=== PATIENT | female | born 1950 | race Caucasian/White ===

== ENCOUNTER 2017-01-01 11:21 | Outpatient (CLI) | payer BC ==
[~2017-01-01] VITALS: Ht 157.5 cm; Wt 110.0 kg
--- NOTE | ~2017-01-01 | HEMODYNAMI ---
PATIENT:BINA MUNIZ MEDICAL RECORD: [id number] : 54 LOCATION:[facility] ADMISSION DATE: 01/01/17 Generatedon:01/01/201713:38 Patient name: BINA MUNIZ Patient #: [id number] SSN: : 1950 Date of study: 01/01/2017 Page: Of Hemodynamic Procedure Report Patient Data Patient Demographics Procedure consent was obtained First Name: BINA Gender: Female Last Name: CRISTY : 1950 [facility] Initial: JOAQUINA Age: 66 year(s) Patient #: [id number] Race: Unknown Additional ID: [id number] Contact details [address]: [address] [place] [address] State: [place] City: [place] Zip code: [address] Past Medical History Allergies Allergen Reaction Date Comments Reported Morphine 01/01/2017 Other allergy 01/01/2017 Benicar, Actos, Erythomycin Admission Admission Data Admission Date: 01/01/2017 Admission Time: 11:21 Lab Results Lab Result Date: 01/01/2017 Lab Result Time: 0:00 Biochemistry Name Units Result Min Max Creatinine mg/dl 1.3 --(---*)-- 0.6 1.3 CBC Name Units Result Min Max Hemoglobin g/dl 14.1 --(*---)-- 13.5 17.5 Procedure Procedure Types Cath Procedure Diagnostic Procedure C [facility] w/Coronaries Miscellaneous Procedures Moderate Sedation up to 30 minutes Procedure Description Procedure Date Procedure Date: 01/01/2017 Procedure Start Time: 13:19 Procedure End Time: 13:38 Procedure Staff Name Function Paco Velasquez MD Performing Physician Brad Ibrahim RT Scrub Red Nicolas RN Nurse Shaila Yee RT Monitor Procedure Data Cath Procedure Fluoroscopy Diagnostic fluoroscopy Total fluoroscopy Time: 6.5 time: 6.5 min min Diagnostic fluoroscopy Total fluoroscopy dose: 643 dose: 643 mGy mGy Contrast Material Contrast Material Type Amount (ml) Isovue 300 77 Entry Location Entry Primary Successful Side Size Upsize Upsize Entry Closure Curry ccessful Closure Location (Fr) 1 (Fr) 2 (Fr) Remarks Device Remarks Radial Right 6 Fr Mechanical artery Short Compression Estimated blood loss: 5 ml Diagnostic catheters Device Type Used For End Catheter Placement Medtronic Dexterity 5Fr LV Angiography BARRY 4.0 catheter (NO CHARGE) Medtronic Dexterity 5Fr Left Coronary BARRY 4.0 catheter (NO Angiography CHARGE) Terumo 5Fr Penfield 110cm Left Coronary catheter Angiography Procedure Complications No complications Procedure Medications Medication Administration Route Dosage Oxygen NC 2 l/min Heparin Flush Bag added to field 2 bags (1000units/500ml NS) 0.9% NaCl I.V. 100 ml/hr Radial Cocktail added to field 1 syringe (Verapomil 2mg/Nitro 400mcg/Heparin 1500units) Fentanyl I.V. 50 mcg Versed I.V. 1 mg Radial Cocktail I.A. 1 syringe (Verapomil 2mg/Nitro 400mcg/Heparin 1500units) Fentanyl I.V. 50 mcg Versed I.V. 1 mg Hemodynamics Rest HGB: 14.1 (g/dl) Heart Rate: 57 (bpm) Pressure Samples Time Site Value (mmHg) Purpose Heart Use Rate(bpm) 13:23 LV 182/-2,16 EDP 77 Snapshots Pre Cath Intra NCS Post Cath Vital Signs Time Heart Resp SPO2 etCO2 HQ2qxif NIBP (mmHg) Rhythm Pain Sedation Rate (ipm) (%) (mmHg) (mmHg) Status Level (bpm) 13:04:01 60 17 94 0 0 160/85(122) NSR 0 (11) 10(A) , No pain 13:08:27 57 20 94 0 0 151/81(120) NSR 0 (11) 10(A) , No pain 13:12:47 59 19 93 0 0 148/75(128) NSR 0 (11) 10(A) , No pain 13:17:11 59 19 94 0 0 148/69(122) NSR 0 (11) 10(A) , No pain 13:21:32 70 19 96 0 0 154/78(121) NSR 0 (11) 9(A) , No pain 13:25:50 64 20 93 0 0 137/70(113) NSR 0 (11) 9(A) , No pain 13:30:10 59 17 93 0 0 127/69(104) NSR 0 (11) 9(A) , No pain 13:35:09 65 19 96 0 0 Measuring NSR 0 (11) 9(A) , No pain 13:35:19 65 17 96 0 0 155/77(120) NSR 0 (11) 9(A) , No pain Medications Time Medication Route Dose Verified Delivered Reason Notes Effectiveness by by 13:04:22 Oxygen NC 2 l/min Red Moon Per Fidencio Nicolas RN physician RN 13:05:02 Heparin Flush added 2 bags Red Moon used for Bag to Fidencio Nicolas RN procedure (1000units/500ml field RN NS) 13:05:11 0.9% NaCl I.V. 100 Red Red Per ml/hr Fidencio Nicolas RN physician RN 13:05:52 Radial Cocktail added 1 Red Moon used for (Verapomil to syringe Fidencio Nicolas RN procedure 2mg/Nitro field RN 400mcg/Heparin 1500units) 13:18:29 Fentanyl I.V. 50 mcg Red Moon for sedation Fidencio Nicolas RN RN 13:18:34 Versed I.V. 1 mg Red Moon for sedation Fidencio Nicolas RN RN 13:20:03 Radial Cocktail I.A. 1 Red Ulrichory for (Verapomil syringe Fidencio [place] vasodilation 2mg/Nitro RN MD 400mcg/Heparin 1500units) 13:20:11 Fentanyl I.V. 50 mcg Red Moon for sedation Fidencio Nicolas RN RN 13:20:16 Versed I.V. 1 mg Red Moon for sedation Fidencio Nicolas RN tool room machinist Log Time Note 12:41:19 Red Nicolas RN sent for patient. Start room use. 12:51:20 Time tracking: Regular hours 12:51:24 Plan of Care:Hemodynamics will remain stable., Cardiac rhythm will remain stable., Comfort level will be maintained., Respiratory function will remain adequate., Patient/ family verbilizes understanding of procedure., Procedure tolerated without complication., Recovers from procedure without complications.. 12:51:40 Patient received from Pre/Post Procedure Room to [facility] 1 Alert and oriented. Tansferred to table in Supine position. 12:51:41 Warm blankets applied, and maira hugger turned on for patient comfort. 12:51:42 Correct patient and procedure confirmed by team. 12:51:43 Signed procedure consent form obtained from patient. 12:51:44 ECG and BP/O2 sat monitors applied to patient. 12:51:44 Full Disclosure recording started 13:02:49 Vital chart was started 13:02:52 Rhythm: sinus bradycardia 13:04:22 Oxygen 2 l/min NC was administered by Red Nicolas RN; Per physician; 13:04:55 H&P Date Dictated: 12/24/2016 Within 30 days and on chart., H&P Addendum completed by physician on day of procedure. (MUST COMPLETE FOR ALL OUTPATIENTS). 13:05:00 Pre-procedure instructions explained to patient. 13:05:01 Pre-op teaching completed and patient verbalized understanding. 13:05:02 Heparin Flush Bag (1000units/500ml NS) 2 bags added to field was administered by Red Nicolas RN; used for procedure; 13:05:02 Family in waiting room. 13:05:04 Patient NPO since Midnight. 13:05:11 0.9% NaCl 100 ml/hr I.V. was administered by Red Nicolas RN; Per physician; 13:05:12 Patient allergic to Morphine 13:05:34 Patient allergic to Other allergyBenicar, Actos, Erythomycin 13:05:52 Radial Cocktail (Verapomil 2mg/Nitro 400mcg/Heparin 1500units) 1 syringe added to field was administered by Red Nicolas RN; used for procedure; 13:06:13 Is the patient allergic to Iodine/contrast media? No. 13:06:16 Is patient on blood thinner?No 13:06:20 Patient diabetic? Yes. 13:06:21 If diabetic: On Metformin? Yes 13:06:24 If on Metformin: Last Dose? 12/31/2016 13:06:27 Previous problem with sedation/anesthesia? No ? 13:06:28 Snore? Yes 13:06:29 Sleep apnea? No 13:06:30 Deviated septum? No 13:06:31 Opens mouth fully? Yes 13:06:32 Sticks out tongue? Yes 13:06:33 Airway obstruction? No ? 13:06:35 Dentures? No ? 13:06:38 Pre procedure: right dorsailis pedis pulse 2+ Normal; easily identifiable; not easily obliterated 13:06:40 Modified Isaac's test Ulnar < 7 seconds 13:06:41 Patient pain scale 0/10 ?. 13:06:47 IV patent on arrival in left hand with 0.9% NaCl at [facility]. 13:07:12 Lab Result : Creatinine 1.3 mg/dl 13:07:12 Lab Result : Hemoglobin 14.1 g/dl 13:07:16 Lab results completed and on chart. 13:07:20 Right Radial & Right Groin area was prepped with chlora-prep and draped in sterile fashion 13:07:21 Alarms reviewed by R. N. 13:07:21 Sharps counted by scrub and verified by R.N. 13:07:26 Use device set Radial Dx 13:07:27 Acist Syringe opened to sterile field. 13:07:27 Medline Cath Pack opened to sterile field. 13:07:28 Bag Decanter opened to sterile field. 13:07:28 Terumo 6Fr Slender Glidesheath opened to sterile field. 13:07:29 St Adam 260cm J .035 wire opened to sterile field. 13:07:29 Acist Hand Control opened to sterile field. 13:07:30 Acist Manifold opened to sterile field. 13:07:30 Tegaderm 4 x 4 opened to sterile field. 13:07:31 MBrace Wrist Support opened to sterile field. 13:09:00 Physician paged 13:09:13 Baseline sample Acquired. 13:14:45 Final Timeout: patient, procedure, and site verified with staff and physician. All members of the team are in agreement. 13:14:49 Right Radial site verified by team. 13:14:55 Physical assessment completed. ASA score P 2 - A patient with mild systemic disease as per Paco Velasquez MD. 13:14:58 Sedation plan: IV Moderate Sedation Versed, Fentanyl 13:18:29 Fentanyl 50 mcg I.V. was administered by Red Nicolas RN; for sedation; 13:18:34 Versed 1 mg I.V. was administered by Red Nicolas RN; for sedation; 13:18:54 Procedure started. 13:19:00 Local anesthetic to right radial artery with Lidocaine 2% by Paco Velasquez MD.INITIAL ACCESS ONLY 13:19:14 A 6 Fr Short sheath was inserted into the Right Radial artery 13:20:03 Radial Cocktail (Verapomil 2mg/Nitro 400mcg/Heparin 1500units) 1 syringe I.A. was administered by Paco Velasquez MD; for vasodilation; 13:20:11 Fentanyl 50 mcg I.V. was administered by Red Nicolas RN; for sedation; 13:20:16 Versed 1 mg I.V. was administered by Red Nicolas RN; for sedation; 13:20:34 A Medtronic Dexterity 5Fr BARRY 4.0 catheter (NO CHARGE) was advanced over the wire and used for LV Angiography. 13:21:11 Terumo ANGLED SS 260CM glide wire opened to sterile field. 13:21:40 SS [place] wire advanced. 13:22:51 Wire removed. 13:23:20 LV gram done using KENNY 13:23:43 EF : 55 % 13:23:46 Injector settings: Ml/sec: 5, Volume: 15, 13:25:34 A Medtronic Dexterity 5Fr BARRY 4.0 catheter (NO CHARGE) was advanced over the wire and used for Left Coronary Angiography.removed. unable to cannulate. 13:26:27 A Terumo 5Fr Penfield 110cm catheter was advanced over the wire and used for Left Coronary Angiography.removed. unable to cannulate. 13:28:26 Medtronic Launcher 6Fr AR 1.0 guide catheter opened to sterile field. 13:28:51 6 Fr AR 1.0 guide catheter was inserted over the wire 13:29:19 RCA angiography performed. 13:30:00 Catheter removed. 13:30:28 Cordis 6FR XBLAD 3.5 guide catheter opened to sterile field. 13:30:52 6 Fr XBLAD 3.5 guide catheter was inserted over the wire 13:33:09 LCA angiography performed. 13:33:51 Catheter removed. 13:34:00 Sheath removed intact; hemostasis achieved with Mechanical Compression to the Right Radial artery. 13:34:02 Procedure ended.(Physican Out) :34:23 Fluoroscopy time 06.50 minutes. :34: Fluoroscopy dose: 643 mGy 13:34:27 Flurop Dose total: 643 13:34:32 Contrast amount:Isovue 300 77ml. 13:34:34 Sharps counted by scrub and verified by R.N. 13:34:36 TR band inflated with 12cc of air. 13:34:37 Insertion/operative site no bleeding no hematoma. 13:34:46 Post right radial artery:stable, clean and dry 13:34:47 Post Procedure Pulses reassessed and unchanged 13:34:52 Post-procedure physical assessment completed. ASA score P 2 - A patient with mild systemic disease as per Paco Velasquez MD. 13:34:54 Post procedure rhythm: unchanged. 13:34:59 Estimated blood loss: 5 ml 13:35:01 Post procedure instruction explained to patient.Patient verbalizes understanding. 13:35:01 Patient needs reinforcement of post procedure teaching. 13:35:10 Procedure type changed to Cath procedure, Diagnostic procedure, LHC, LHC w/Coronaries, Miscellaneous Procedures, Moderate Sedation up to 30 minutes 13:35:35 Procedure Complication : No complications 13:36:24 Terumo TR Band Standard opened to sterile field. 13:37:29 Procedure and supply charges have been captured, reviewed, submitted and are correct. 13:37:29 See physician's report for complete and final results. 13:37:53 Vital chart was stopped 13:37:55 Report given to Pre/Post Procedure Room. 13:37:58 Patient transfered to Pre/Post Procedure Room with Stretcher. 13:38:00 Procedure ended. 13:38:00 Full Disclosure recording stopped 13:38:07 End room use (Document Last) Device Usage Item Name Manufacture Quantity Catalog Hospital Part Current Minimal Lot# / Number Charge Number Stock Stock Serial# Code Acist Acist 1 [id number] [id number] [id number] 20 Syringe Medical Systems Inc Medline Cardinal 1 [id number] 082013 15527 971465 5 Cath Pack Health Bag Microtek 1 2001S 101437 09577 170739 5 Decanter Medical Inc. Terumo 6Fr Terumo 1 [id number] 689602 893533 457069 [address] [facility] St Adam 1 [id number] 191666 201939 882326 30 260cm J .035 wire Acist Hand Acist 1 36585 736938 099969 978591 5 Control Medical Systems Inc Acist Acist 1 29678 558360 088359 022101 5 Manifold Medical Systems [facility] Tegaderm 4 3M 1 [id number] 982887 033898 182335 5 x 4 MBrace Advanced 1 140-0250-00 279193 84389 516342 5 Wrist Vascular Support Dynamics Medtronic Medtronic 1 [id number] 420866 613837 5 Dexterity 5Fr BARRY 4.0 catheter (NO CHARGE) Terumo Terumo 1 [id number] 870657 764555 342891 5 ANGLED SS 260CM glide wire Terumo 5Fr Terumo 1 40-3303 571741 294803 045136 5 Penfield 110cm catheter Medtronic Medtronic 1 [id number] 229438 77702 565937 1 Launcher 6Fr AR 1.0 guide catheter Cordis 6FR Cardinal 1 [id number] 672138 612004 488761 10 XBLAD 3.5 Health guide catheter Terumo TR Terumo 1 [id number] 381092 795003 504174 40 Band Standard Signature Audit [place] Stage Time Signature Unsigned Intra-Procedure 01/01/2017 Shaila 1:38:22 PM Counts RT(R) Signatures Monitor : Shaila Signature : Counts RT Date : Time : [place] [id number] [facility] [place] [place] [address]
[~2017-01-01 11:21] MED LIST: ASPIRIN EC81 M1 PO; CALCIUM 500 +1 EAC3 PO; GLIMEPIRIDE2 MG PO; GLUCOPHAGE500 MG PO; LANTUS INSULIN10 ML SC; LASIX20 MG PO; METOPROLOL TART50 MG PO; NORVASC10 MG PO; PERCOCET 5-3251 TAB PO; PRINIVIL20 MG PO; PROTONIX40 MG PO; TRIAMTERENE-HCT1 TA1 PO; ULTRAM50 MG PO; VESICARE10 MG PO; ZOLOFT50 MG PO
[2017-01-01] MEDS ORDERED: VICTOZA0.6 MG/0.1 SQ (11:57)
[2017-01-01] MEDS ORDERED: APIDRA SOL100 UNIT/1 SQ (11:57)
[2017-01-01] MEDS ORDERED: LEVOTHYROXINE200 MCG PO (11:58)
[2017-01-01] MEDS ORDERED: NORVASC5 MG PO (11:58)
[2017-01-01] MEDS ORDERED: ZOVIRAX400 MG PO (11:59)
[2017-01-01] MEDS ORDERED: PREDNISONE10 MG PO (12:00)
[2017-01-01] MEDS ORDERED: EPIPEN0.3 MG/0.3 IM (12:00)
[2017-01-01] MEDS ORDERED: DEMADEX10 MG PO (12:00)
[2017-01-01 12:04] LABS: BASOPHILS 0 % (0-2); EOSINOPHILS 0 % (0-7); HEMATOCRIT 42.4 % (36.0-48.0); HEMOGLOBIN 14.1 g/dL (12-16); IMMATURE GRANULOCYTES 0.9 % (0-5); MCH 28.7 pg (26.0-34.0); MCHC 33.3 g/dL (31.0-37.0); MCV 86.4 fL (80.0-100.0); MEAN PLATELET VOLUME 9.4 fL (7.4-10.4); MONOCYTES 5.1 % (2-11); RBC 4.91 10x6/uL (4.00-5.40); RDW 13.8 % (11.5-14.5); WBC 11.2 10x3/uL (4.8-10.8)
[2017-01-01 12:05] LABS: PLATELET COUNT 253 10x3/uL (130-400)
[2017-01-01 12:08] VITALS: BP 175/78; Ht 157.5 cm; Wt 110.0 kg
[2017-01-01 12:13] LABS: ANION GAP 12.7 mmol/L (8-16); CALCIUM 9.4 mg/dL (8.5-10.1); CARBON DIOXIDE 27.5 mmol/L (21.0-32.0); CREATININE - SERUM 1.3 mg/dL (0.6-1.3); POTASSIUM - SERUM 4.2 mmol/L (3.5-5.1)
--- NOTE | 2017-01-01 15:35 | NUR ---
1400 RESTING IN BED WITH EYES CLOSED. ALL VITALS WNL.R WRIST TR BAND C/D/I WITH NO HEMATOMA OR BLEEDING. FAMILY AT SIDE.
--- NOTE | 2017-01-01 15:41 | NUR ---
1430 EATING TURKEY SANDWICH AND SIPPING DIET COKE WITH NO C/O NAUSEA. VITALS ALL WNL. R WRIST TR BAND C/D/I. 1515 3CC AIR REMOVED FROM R WRIST TR BAND, WILL MONITOR CLOSELY. UP FROM BED, AMBULATED TO BATHROOM TO VOID. BACK TO BED. PIV REMOVED FROM L FOREARM WITH BANDAID APPLIED. 1535 UP TO BEDSIDE TO DRESS, ANOTHER 2CC AIR REMOVED FROM R WRIST TR BAND. NO BLEEDING OR HEMATOMA NOTED.
--- NOTE | 2017-01-01 15:59 | NUR ---
TR BAND REMOVED FROM R WRIST. TEGADERM AND COTTON BALL IN PLACE. NO BLEEDING OR HEMATOMA NOTED. BRACE REPLACED. D/C INSTRUCTIONS DISCUSSED WITH PATIENT AND AT BEDSIDE. WHEELED OUT VIA WHEELCHAIR.
--- NOTE | 2017-01-03 08:26 | OP ---
PATIENT NAME: BINA MUNIZ MEDICAL RECORD: [id number] :54 LOCATION:D.CAT ADMISSION DATE: SURGEON: ION GARDINER MD DATE OF OPERATION: PROCEDURE: Left heart catheterization, selective coronary angiography, right radial approach. CATHETERS: A 5-Lao sheath, due to tortuosity, we switched to guiding catheters, we used an EBU in the left, AR1 on the right. The procedure was well tolerated. The patient returned to the yu, sheath removed and TR band was placed. FINDINGS: Left ventriculography in the 30-degree KENNY view: Normal wall motion and normal systolic function. CORONARY ANATOMY: LEFT MAIN: Left main is free of disease. LAD: LAD is free of disease. Previously placed stent is widely patent. CIRCUMFLEX: Circumflex is free of disease in the marginal system. RIGHT CORONARY ARTERY: Dominant artery, gives rise to PDA, free of disease. IMPRESSION: Normal systolic function. Normal coronary anatomy. No S3 stenosis. No progression of [place] disease. TRANSINT:[id number] Voice Confirmation ID: [id number] DOCUMENT ID: [id number] ION GARDINER MD at 0826 CC: [id number] DICTATION DATE: 01/01/17 1344 AIR CONDITIONING ENGINEER: 01/01/17 2142 DEP CLI 01/01/17 [place] [address] [place] [address]
== END 2017-01-01 16:00 | disposition home or self-care (01) ==
LOC: D.CATH 11:21
PROVIDERS: Internal Medicine Interventional Cardiology
DX: I25.119 Atherosclerotic heart disease of native coronary artery with unspecified angina pectoris (principal); I10 Essential (primary) hypertension; E11.9 Type 2 diabetes mellitus without complications; Z01.812 Encounter for preprocedural laboratory examination

== ENCOUNTER → 2018-09-21 14:35 | Outpatient (CLI) | payer MEDICARE, OTHER ==
[2017-01-01 12:08] VITALS: BMI 44.4
[~2018-09-21 14:35] MED LIST changes: +APIDRA SOL100 UNIT/1 SQ; +DEMADEX10 MG PO; +EPIPEN0.3 MG/0.3 IM; +LEVOTHYROXINE200 MCG PO; +NORVASC5 MG PO; +PREDNISONE10 MG PO; +VICTOZA0.6 MG/0.1 SQ; +ZOVIRAX400 MG PO
== END | disposition home or self-care (01) ==
LOC: D.RAD 14:35
DX: M25.511 Pain in right shoulder (principal)

== ENCOUNTER → 2019-09-15 08:02 | Outpatient (CLI) | payer MEDICARE, OTHER ==
[2017-01-01 12:08] VITALS: BMI 44.4
== END | disposition home or self-care (01) ==
LOC: D.US 08:02
PROVIDERS: ATTEND Internal Medicine
DX: E03.9 Hypothyroidism, unspecified (principal)

== ENCOUNTER → 2019-12-07 09:35 | Outpatient (CLI) | payer MEDICARE, OTHER ==
[2017-01-01 12:08] VITALS: BMI 44.4
== END | disposition home or self-care (01) ==
LOC: D.HCCARDIO 09:35
PROVIDERS: ATTEND Internal Medicine Cardiovascular Disease
DX: I25.10 Atherosclerotic heart disease of native coronary artery without angina pectoris (principal)

== ENCOUNTER 2019-12-14 06:03 | Outpatient (CLI) | payer MEDICARE, OTHER ==
[~2019-12-14] VITALS: Ht 157.5 cm; Wt 109.1 kg
--- NOTE | ~2019-12-14 | HEMODYNAMI ---
PATIENT:BINA MUNIZ MEDICAL RECORD: [id number] : 54 LOCATION:[facility] ADMISSION DATE: 12/14/19 Generatedon:12/14/20198:40 Patient name: BINA MUNIZ Patient #: [id number] SSN: [id number] : 1950 Date of study: 12/14/2019 Page: Of Hemodynamic Procedure Report Patient Data Patient Demographics Procedure consent was obtained First Name: BINA Gender: Female Last Name: CRISTY : 1950 Middle Initial: JOAQUINA Age: 68 year(s) Patient #: [id number] Race: SSN: [id number] Additional ID: [id number] Contact details Address: [address] [address] State: [place] City: [place] Zip code: [address] Past Medical History Performed procedures and imaging results Date Procedure Procedure Results Comments 12/07/2019 Stress testing Positive->Intermediate with SPECT MPI risk Allergies Allergen Reaction Date Comments Reported Morphine 01/01/2017 Other allergy 01/01/2017 Benicar, Actos, Erythomycin Other allergy 12/14/2019 ACTOS, ERYHTROMYCIN BASE, MORPHINE, STATINS Admission Admission Data Admission Date: 12/14/2019 Admission Time: 6:03 Arrival Date: 12/14/2019 Arrival Time: 0:00 Admit Source: Other Insurance Payor: Medicare [facility] #: [id number] Height (in.): 62 BSA: 2.07 (m2) Height (cm.): 157.48 BMI: 43.99 (kg/m2) Weight (lbs.): 240.5 Weight (kg.): 109.09 Lab Results Lab Result Date: 12/14/2019 Lab Result Time: 0:00 Biochemistry Name Units Result Min Max BUN mg/dl 24 --(----)-* 7 18 Creatinine mg/dl 1.1 --(--*-)-- 0.6 1.3 eGFR ml/min 53 *-(----)-- 90 120 NONAFRICAN CBC Name Units Result Min Max Hematocrit % 40.6 -*(----)-- 42 54 Hemoglobin g/dl 12.9 -*(----)-- 13.5 17.5 Procedure Procedure Types Cath Procedure Diagnostic Procedure [facility] w/Coronaries Sedation Charges Moderate Sedation up to 15 minutes Procedure Description Procedure Date Procedure Date: 12/14/2019 Procedure Start Time: 8:17 Procedure End Time: 8:38 Procedure Staff Name Function Yonatan Deleon MD Performing Physician Paris Winchester RN Nurse Cayla Gordon RT Monitor Gypsy Gomez RT Scrub Procedure Data Cath Procedure Fluoroscopy Diagnostic fluoroscopy Total fluoroscopy Time: 0 time: 0 min min Diagnostic fluoroscopy Total fluoroscopy dose: 488 dose: 488 mGy mGy Contrast Material Contrast Material Type Amount (ml) Isovue 300 60 Entry Location Entry Primary Successful Side Size Upsize Upsize Entry Closure Succes sful Closure Location (Fr) 1 (Fr) 2 (Fr) Remarks Device Remarks Femoral Right 5 Fr Exoseal artery Estimated blood loss: 5 ml Diagnostic catheters Device Type Used For End Catheter Placement MULTIPACK JL 4.0 5Fr Procedure catheter MULTIPACK 3DRC 5Fr Procedure catheter MULTIPACK Pigtail 5 Fr Procedure catheter Procedure Complications No complications Procedure Medications Medication Administration Route Dosage Oxygen etCO2 Nasal cannula 2 l/min Lidocaine 2% added to field 20 Heparin Flush Bag added to field 2 bags (1000units/500ml NS) 0.9% NaCl I.V. 100 ml/hr Versed I.V. 1 mg Fentanyl I.V. 50 mcg Versed I.V. 1 mg Fentanyl I.V. 50 mcg Versed I.V. 1 mg Fentanyl I.V. 50 mcg Hemodynamics Rest BSA: 2.07 (m2) HGB: 12.9 (g/dl) O2 Consumption: Estimated: 186.48 (ml/min) O2 Co nsumption indexed: Estimated:90.09 (ml/min/m) Heart Rate: 63 (bpm) Pressure Samples Time Site Value (mmHg) Purpose Heart Use Rate(bpm) 8:33 LV 144/16,34 Snapshot 68 8:34 AO 133/60(90) Pullback 68 8:34 LV 131/15,27 Pullback 68 Gradients Valve Time Site 1 Site 2 Mean SEP/DFP Peak To Heart Use (mmHg) (sec/min) Peak Rate (mmHg) (bpm) Aortic 8:34 LV AO 0 13 0 68 131/15,27 133/60(90) Calculations Valve P-P Mean Valve Index Valve Source Name Gradient Area Flow (cm2) Aortic 0 0 0 0 Snapshots Pre Cath Intra NCS Post Cath Vital Signs Time Heart Resp SPO2 etCO2 NIBP (mmHg) Rhythm Pain Sedation Rate (ipm) (%) (mmHg) Status Level (bpm) 7:58:28 61 16 99 0 178/83(127) NSR 0 (11) 10(A) , No pain 8:03:00 61 19 100 38.9 161/88(131) NSR 0 (11) 10(A) , No pain 8:07:33 64 16 98 44.2 154/74(123) NSR 0 (11) 10(A) , No pain 8:13:00 65 19 95 21.7 155/80(99) NSR 0 (11) 10(A) , No pain 8:18:30 64 19 98 47.1 166/83(123) NSR 0 (11) 9(A) , No pain 8:23:03 62 24 98 44.2 153/71(120) NSR 0 (11) 9(A) , No pain 8:28:30 64 16 94 50.2 146/70(104) NSR 0 (11) 9(A) , No pain 8:33:52 69 15 95 43.4 130/71(110) NSR 0 (11) 9(A) , No pain 8:38:18 69 16 94 56.2 141/68(110) NSR 0 (11) 10(A) , No pain Medications Time Medication Route Dose Verified Delivered Reason Notes Effe ctiveness by by 7:57:07 Oxygen etCO2 2 Yonatan Buffie used for Nasal l/min Pancho Winchester RN procedure cannula 7:57:13 Lidocaine 2% added 20ml Yonatan Yonatan for local to vial Pancho Deleon MD anesthetic field 7:57:20 Heparin Flush added 2 Yonatan Yonatan used for Bag to bags Pancho Deleon MD procedure (1000units/500ml field NS) 7:57:28 0.9% NaCl I.V. 100 Yonatan Buffie Per ml/hr Pancho Winchester RN physician 8:13:25 Versed I.V. 1 mg Yonatan Buffie for Pancho Winchester RN sedation 8:13:30 Fentanyl I.V. 50 Yonatan Buffie for mcg Pancho Winchester RN sedation 8:18:30 Versed I.V. 1 mg Yonatan Buffie for Pancho Winchester RN sedation 8:18:34 Fentanyl I.V. 50 Yonatan Buffie for mcg Pancho Winchester RN sedation 8:26:43 Versed I.V. 1 mg Yonatan Buffie for Pancho Winchester RN sedation 8:26:47 Fentanyl I.V. 50 Yonatan Buffie for mcg Pancho Winchester RN sedation Procedure Log Time Note 7:37:07 Informed consent obtained and on chart 7:37:21 Diagnostic Cath Status : Elective 7:37:42 Admit Source: Other 7:37:47 ACC Patient presents with Stable Angina CCS Anginal Class 2--Slight limitation of ordinary activity. 7:38:01 Procedure Status Elective Heart Cath (OP). 7:38:07 Time tracking: Regular hours (M-F 7:00 - 5:00) 7:38:12 Plan of Care:Hemodynamics will remain stable., Cardiac rhythm will remain stable., Comfort level will be maintained., Respiratory function will remain adequate., Patient/ family verbilizes understanding of procedure., Procedure tolerated without complication., Recovers from procedure without complications.. 7:38:23 H&P Date Dictated: 12/01/2019 Within 30 days and on chart.. 7:38:24 Pre-procedure instructions explained to patient. 7:38:25 Pre-op teaching completed and patient verbalized understanding. 7:38:26 Family unavailable. 7:38:28 Patient NPO since Midnight. 7:39:00 Patient allergic to Other allergyACTOS, ERYHTROMYCIN BASE, MORPHINE, STATINS 7:39:09 Lab results completed and on chart. 7:39:28 Stress Test: yes; abnormal ANTERIOR, LATERAL 7:39:31 Alarms reviewed by R. N. 7:39:31 Sharps counted by scrub and verified by R.N. 7:40:15 Arrival Date: 12/14/2019 12:00:00 AM 7:40:34 Insurance Payor : Medicare 7:42:06 Patient Height : 62 inches 7:42:10 Patient Weight : 240.5 lbs 7:46:00 Paris Winchester RN sent for patient. Start room use. 7:48:41 Lab Result : Hemoglobin 12.9 g/dl 7:48:41 Lab Result : Hematocrit 40.6 % 7:51:04 Patient received from Pre/Post Procedure Room to CCL 1 Alert and oriented. Tansferred to table in Supine position. 7:51:06 Warm blankets applied, and maira hugger turned on for patient comfort. 7:51:06 Correct patient and procedure confirmed by team. 7:51:07 ECG and BP/O2 sat monitors applied to patient. 7:51:11 Is the patient allergic to Iodine/contrast media? No. 7:51:13 Was the patient premedicated? N/A 7:51:15 Is patient on blood thinner?No 7:51:21 Patient diabetic? Yes. 7:51:23 If diabetic: On Metformin? Yes 7:51:31 Sleep apnea? Yes 7:51:41 If on Metformin: Last Dose? 12/12/2019 7:51:44 Patient not . Patient is over age 55. 7:51:45 ----Pre-sedation anethsthesia assessment.---- 7:51:49 Previous problem with sedation/anesthesia? No ? 7:51:50 Snore? Yes 7:51:51 Deviated septum? No 7:51:52 Opens mouth fully? Yes 7:51:53 Sticks out tongue? Yes 7:52:00 Airway obstruction? Yes asthma 7:52:04 Dentures? No ? 7:52:12 Patient pain scale 0/10 ?. 7:56:55 Vital chart was started 7:57:07 Oxygen 2 l/min etCO2 Nasal cannula was administered by Paris Winchester RN; used for procedure; Verbal order read back and verified. 7:57:13 Lidocaine 2% 20ml vial added to field was administered by Yonatan Deleon MD; for local anesthetic; Verbal order read back and verified. 7:57:20 Heparin Flush Bag (1000units/500ml NS) 2 bags added to field was administered by Yonatan Deleon MD; used for procedure; Verbal order read back and verified. 7:57:28 0.9% NaCl 100 ml/hr I.V. was administered by Paris Winchester RN; Per physician; Verbal order read back and verified. 8:00:13 Lab Result : eGFR NONAFRICAN 53 ml/min 8:00:13 Lab Result : Creatinine 1.1 mg/dl 8:00:13 Lab Result : BUN 24 mg/dl 8:00:36 Pre procedure: right dorsailis pedis pulse 2+ Normal; easily identifiable; not easily obliterated 8:00:44 IV patent on arrival in left antecubital with 0.9% NaCl at KVO. 8:00:50 Right groin area was prepped with chlora-prep and draped in sterile fashion 8:00:55 --------ALL STOP TIME OUT------ 8:00:55 Final Timeout: patient, procedure, and site verified with staff and physician. All members of the team are in agreement. 8:00:58 Right groin site verified by team. 8:01:04 Fire Safety Assessment: A--An alcohol-based skin anteseptic being used preoperatively., C--Open oxygen or nitrous oxide is being used., D--An ESU, laser, or fiber-optic light is being used. 8:01:08 Physical assessment completed. ASA score P 2 - A patient with mild systemic disease as per Yonatan Deleon MD. 8:01:11 3a) 45-59 Moderately reduced kidney function. 8:01:14 Maximum allowable contrast dose (3.7 X eGFR X 0.75)147 ml. 8:01:18 Sedation plan: IV Moderate Sedation Medication:Versed, Fentanyl 8:01:24 Full Disclosure recording started 8:01:25 Baseline sample Acquired. 8:01:30 Rhythm: sinus rhythm 8:01:33 Use device set Femoral Dx 8:01:34 ACIST Syringe (86834) opened to sterile field. 8:01:35 Bag Decanter (2002S) opened to sterile field. 8:01:36 Medline Cath Pack ([id number]) opened to sterile field. 8:01:37 ACIST Hand Control (90395) opened to sterile field. 8:01:38 ACIST Manifold (58914) opened to sterile field. 8:01:38 DIAGNOSTIC Multipack 5Fr catheter set ([id number]) opened to sterile field. 8:01:39 SHEATH 5FR [place] (RIS721) opened to sterile field. 8:01:40 EMERALD Guide Wire (004-742) opened to sterile field. 8:13:25 Versed 1 mg I.V. was administered by Paris Winchester RN; for sedation; Verbal order read back and verified. 8:13:30 Fentanyl 50 mcg I.V. was administered by Paris Winchester RN; for sedation; Verbal order read back and verified. 8:16:53 Procedure started. 8:17:01 Local anesthetic to right femoral artery with Lidocaine 2% by Yonatan Deleon MD.INITIAL ACCESS ONLY 8:18:30 Versed 1 mg I.V. was administered by Paris Winchester RN; for sedation; Verbal order read back and verified. 8:18:34 Fentanyl 50 mcg I.V. was administered by Paris Winchester RN; for sedation; Verbal order read back and verified. 8:26:43 Versed 1 mg I.V. was administered by Paris Winchester RN; for sedation; Verbal order read back and verified. 8:26:47 Fentanyl 50 mcg I.V. was administered by Paris Winchester RN; for sedation; Verbal order read back and verified. 8:27:15 A 5 Fr sheath was inserted into the Right Femoral artery 8:27:28 A MULTIPACK JL 4.0 5Fr catheter was advanced over the wire and used for Procedure. 8:28:00 LCA angiography performed. 8:28:03 Injector settings: Ml/sec: 3, Volume: 6, 8:29:40 Catheter exchanged over wire. 8:30:35 A MULTIPACK 3DRC 5Fr catheter was advanced over the wire and used for Procedure. 8:30:39 RCA angiography performed. 8:30:42 Injector settings: Ml/sec: 3, Volume: 6, 8:31:58 ACCDominant side:Right 8:32:14 Catheter exchanged over wire. 8:33:14 A MULTIPACK Pigtail 5 Fr catheter was advanced over the wire and used for Procedure. 8:33:47 LV gram done using KENNY 8:33:48 LV hemodynamics recorded. 8:33:52 Injector settings: Ml/sec: 5, Volume: 15, 8:33:58 EF : 60 % 8:34:24 Catheter removed. 8:34:28 EXOSEAL 5Fr (EX500) opened to sterile field. 8:35:44 Sheath removed intact; hemostasis achieved with Exoseal to the Right Femoral artery. 8:35:50 Contrast amount:Isovue 300 60ml. 8:35:54 Maximum allowable dose exceeded? No. 8:35:55 Sharps counted by scrub and verified by R.N. 8:35:59 Fluoroscopy time 00.00 minutes. 8:36:06 Flurop Dose total: 488 8:36:06 Fluoroscopy dose: 488 mGy 8:36:12 Dose Area Product 76337 mGy/cm. 8:36:23 Procedure ended.(Physican Out) 8:37:01 Post-op/insertion site Right Femoral artery dressed using a 4 x 4 and Tegaderm. 8:37:07 Post right femoral artery:stable, soft, clean and dry 8:37:09 Post Procedure Pulses reassessed and unchanged 8:37:11 Post procedure: right dorsailis pedis pulse 2+ Normal; easily identifiable; not easily obliterated. 8:37:14 Post-procedure physical assessment completed. ASA score P 2 - A patient with mild systemic disease as per Yonatan Deleon MD. 8:37:17 Post procedure rhythm: unchanged. 8:37:36 Estimated blood loss: 5 ml 8:37:37 Post procedure instruction explained to patient.Patient verbalizes understanding. 8:37:38 Patient needs reinforcement of post procedure teaching. 8:37:44 Procedure type changed to Cath procedure, Diagnostic procedure, LHC, [facility] w/Coronaries, Sedation Charges, Moderate Sedation up to 15 minutes 8:37:59 Procedure and supply charges have been captured, reviewed, submitted and are correct. 8:38:04 Procedure Complication : No complications 8:38:07 Vital chart was stopped 8:38:08 [facility] Findings: mild to moderate CAD (<70%) 8:38:12 Operative report dictated upon procedure completion. 8:38:13 See physician's report for complete and final results. 8:38:14 Report given to Pre/Post Procedure Room. 8:38:17 Patient transfered to Pre/Post Procedure Room with Stretcher. 8:38:20 Procedure ended. 8:38:20 Full Disclosure recording stopped 8:39:55 End room use (Document Last) 8:40:10 End room use (Document Last) 8:40:30 End room use (Document Last) Device Usage Item Name Manufacture Quantity Catalog Hospital Part Current Minimal L ot# / Number Charge Number Stock Stock Serial# Code ACIST Acist 1 99237 027469 893712 140092 20 Syringe Medical (19195) Systems Inc Bag Microtek 1 649929 28729 184035 5 Decanter Medical Inc. () Medline Medline 1 [id number] 891842 95853 417418 5 Cath Pack ([id number]) ACIST Hand Acist 1 91056 654556 040109 326669 5 Control Medical (17106) Systems Inc ACIST Acist 1 79768 078698 792447 910687 5 Manifold Medical (72711) Systems Inc DIAGNOSTIC Cardinal 1 BE4937 833271 49560 453635 30 Multipack UnboundID 5Fr catheter set (DZ8549) SHEATH 5FR Terumo 1 [id number] 775698 854237 699522 5 [place] (CNN688) EMERALD Cardinal 1 502-455 495791 656123 752652 5 Guide Wire [facility] (502-323) MULTIPACK Cardinal 1 475012 5 JL 4.0 5Fr Health catheter MULTIPACK Cardinal 1 701160 5 3DRC 5Fr Health catheter MULTIPACK Cardinal 1 053568 5 Pigtail 5 Health Fr catheter EXOSEAL 5Fr Cardinal 1 EX500 817063 484052 723009 10 (EX500) Health Signature Audit [place] Stage Time Signature Unsigned Intra-Procedure 12/14/2019 Cayla Gordon 8:40:10 AM RT(R) Intra-Procedure 12/14/2019 Paris Winchester RN 8:40:30 AM Intra-Procedure 12/14/2019 Yonatan Deleon MD 8:40:50 AM [id number] [place] [address]
[2019-12-14] MEDS ORDERED: BASAGLAR K100 UNIT/1 SC (06:20)
[2019-12-14] MEDS ORDERED: GLUCOPHAGE1000 MG PO (06:21)
[2019-12-14] MEDS ORDERED: NEURONTIN 300300 MG PO (06:22)
[2019-12-14] MEDS ORDERED: PROTONIX40 MG PO (06:22)
[2019-12-14] MEDS ORDERED: ZOLOFT50 MG PO (06:22)
[2019-12-14] MEDS ORDERED: ZYRTEC10 MG PO (06:22)
[2019-12-14] MEDS ORDERED: TROSPIUM CHLORI20 MG PO (06:23)
[2019-12-14] MEDS ORDERED: SYNTHROID150 MCG PO (06:23)
[2019-12-14] MEDS ORDERED: BAYER CHEWABLE81 MG PO (06:23)
[2019-12-14] MEDS ORDERED: ACETAMINOPHEN325 MG PO (06:24)
[2019-12-14 06:48] LABS: BASOPHILS 0.4 % (0-2); EOSINOPHILS 2.7 % (0-7); HEMATOCRIT 40.6 % (36.0-48.0); HEMOGLOBIN 12.9 g/dL (12-16); IMMATURE GRANULOCYTES 0.5 % (0-5); LYMPHOCYTES 28.4 % (15-50); MCH 26.7 pg (26.0-34.0); MCHC 31.8 g/dL (31.0-37.0); MCV 83.9 fL (80.0-100.0); MEAN PLATELET VOLUME 9.3 fL (7.4-10.4); MONOCYTES 10.4 % (2-11); NEUTROPHILS 57.6 % (40-80); PLATELET COUNT 193 10x3/uL (130-400); RBC 4.84 10x6/uL (4.00-5.40); RDW 14.7 % (11.5-14.5); WBC 7.4 10x3/uL (4.8-10.8)
[2019-12-14 06:53] VITALS: BP 159/78; Ht 157.5 cm; Wt 109.1 kg
[2019-12-14 07:05] LABS: LDL-HDL RATIO 4.1 ratio (1.5-3.5)
[2019-12-14 07:53] LABS: CREATININE - SERUM 1.1 mg/dL (0.6-1.3)
--- NOTE | 2019-12-14 08:50 | NUR ---
PT ARRIVED BY STRETCHER. PLACED ON MONITORS. ASSESSMENT COMPLETED. VSS. CALL LIGHT WITHIN REACH.
--- NOTE | 2019-12-14 09:05 | NUR ---
PT RESTING COMFORTABLY. VSS. RIGHT GROIN DRESSING C/D/I. NO S/S OF HEMATOMA NOTED. CALL LIGHT WITHIN REACH. NO NEEDS AT THIS TIME.
--- NOTE | 2019-12-14 09:35 | NUR ---
PT RESTING COMFORTABLY. VSS. RIGHT GROIN DRESSING C/D/I NO S/S OF HEMATOMA NOTED
--- NOTE | 2019-12-14 10:05 | NUR ---
RIGHT GROIN DRESSING C/D/I. NO S/S OF HEMATOMA NOTED. CALL LIGHT WITHIN REACH. VSS. HEAD OF BED INC TO 30 DEGREES. TOLERATED WELL. SET UP WITH SANDWICH TRAY AND DRINK AT THIS TIME. DENIES NAUSEA/PAIN.
--- NOTE | 2019-12-14 10:40 | NUR ---
RIGHT GROIN DRESSING C/D/I. NO S/S OF HEMATOMA NOTED. PIV D/C'D WITH CATH TIP INTACT. TOLERATED WELL. PT INSTRUCTED TO GET UP AND DRESSED AT THIS TIME. NO ASSISTANCE NEEDED. CALL LIGHT WITHIN REACH.
--- NOTE | 2019-12-14 10:55 | NUR ---
PT AMBULATED TO RESTROOM. VOIDED WITHOUT DIFFICULTY. STEADY GAIT NOTED. DISCUSSED DISCHARGE INSTRUCTIONS WITH PT. SHE VOICED UNDERSTANDING. RIGHT GROIN DRESSING C/D/I. NO S/S OF HEMATOMA NOTED.
--- NOTE | 2019-12-14 11:00 | NUR ---
PT TAKEN DOWN TO VEHICLE BY WHEELCHAIR. NO S/S OF DISTRESS NOTED. ALL BELONGINGS AND PAPERWORK IN HAND.
== END 2019-12-14 11:00 | disposition home or self-care (01) ==
LOC: D.CATH 06:03
PROVIDERS: ATTEND Internal Medicine Cardiovascular Disease
DX: I25.119 Atherosclerotic heart disease of native coronary artery with unspecified angina pectoris (principal); R94.30 Abnormal result of cardiovascular function study, unspecified; I10 Essential (primary) hypertension; E78.5 Hyperlipidemia, unspecified; E11.9 Type 2 diabetes mellitus without complications; R06.00 Dyspnea, unspecified; R53.81 Other malaise; Z85.850 Personal history of malignant neoplasm of thyroid; Z79.84 Long term (current) use of oral hypoglycemic drugs

== ENCOUNTER 2021-02-18 18:59 | Inpatient (IN) | payer MEDICARE, OTHER ==
[~2021-02-18] VITALS: Ht 157.5 cm; Wt 99.8 kg
[~2021-02-18 18:59] MED LIST changes: +ACETAMINOPHEN325 MG PO; +BASAGLAR K100 UNIT/1 SC; +BAYER CHEWABLE81 MG PO; +GLUCOPHAGE1000 MG PO; +NEURONTIN 300300 MG PO; +SYNTHROID150 MCG PO; +TROSPIUM CHLORI20 MG PO; +ZYRTEC10 MG PO
[2021-02-18] MEDS ORDERED: TROSPIUM CHLORI20 MG (19:27)
[2021-02-18] MEDS ORDERED: LASIX20 MG PO (19:27)
[2021-02-18] MEDS ORDERED: OTC (19:28)
[2021-02-18 19:54] LABS: BASOPHILS 1.4 % (0-2); EOSINOPHILS 1.6 % (0-7); HEMATOCRIT 42.1 % (36.0-48.0); HEMOGLOBIN 13.9 g/dL (12-16); LYMPHOCYTES 26.8 % (15-50); MCH 27.2 pg (26.0-34.0); MCV 82.5 fL (80.0-100.0); MEAN PLATELET VOLUME 7.6 fL (7.4-10.4); MONOCYTES 10.6 % (2-11); NEUTROPHILS 59.6 % (40-80); PLATELET COUNT 187 10x3/uL (130-400); WBC 8.7 10x3/uL (4.8-10.8)
[2021-02-18 19:56] LABS: CALC OSMOLALITY 291 mosm/kg (275-300); CALCIUM 8.6 mg/dL (8.5-10.1); CARBON DIOXIDE 29.7 mmol/L (21.0-32.0); CHLORIDE - SERUM 102 mmol/L (98-107); CREATININE - SERUM 1.7 mg/dL (0.6-1.3); POTASSIUM - SERUM 4.2 mmol/L (3.5-5.1); SODIUM 140 mmol/L (136-145); UREA NITROGEN 31 mg/dL (7-18); eGFR NON AFRICAN AMERICAN 32 mL/min (90-120)
[2021-02-18 20:04] LABS: GLUCOSE 202 mg/dL (74-106)
[2021-02-18 20:09] LABS: ALBUMIN 3.3 g/dL (3.4-5.0); ALKALINE PHOSPHATASE 45 U/L (30-120); ALT (SGPT) 22 U/L (10-68); BILIRUBIN - TOTAL 0.25 mg/dL (0.2-1.3); MAGNESIUM - SERUM 1.6 mg/dL (1.8-2.4); PRO BNP 108 pg/mL (0-125); PROTEIN - SERUM 7.3 g/dL (6.4-8.2); TROPONIN-I < 0.017 ng/mL (0.000-0.060)
[2021-02-18 21:38] VITALS: BP 151/54
--- NOTE | 2021-02-18 21:53 | NUR ---
PATIENT NOT GIVEN LANTUS 30 UNITS DUE TO PATIENT STATING THAT SHE TOOK HER MEDICATION AT HOME TONIGHT AND DOES NOT WANT TO TAKE A DOUBLE DOSE.
--- NOTE | 2021-02-18 21:54 | NUR ---
BESIDE BLOOD GLUCOSE 197
[2021-02-19] VITALS (7 sets, daily range): BP systolic 119–155; BP diastolic 42–71; Ht 157.5 cm; Wt 99.8 kg
--- NOTE | 2021-02-19 01:00 | NUR ---
REPORT FROM TRACIE EDWARDS. PT RESTING EYES CLOSED RESP EVEN AND UNLABORED. PT ON MONITOR.
--- NOTE | 2021-02-19 02:00 | NUR ---
PT RESP EVEN AND UNLABORED AT THIS TIME. PT ON MONITOR.
--- NOTE | 2021-02-19 03:00 | NUR ---
PT ON MONITOR. PT RESP EVEN AND UNLABORED. CALL LIGHT AT BEDSIDE.
--- NOTE | 2021-02-19 04:00 | NUR ---
PT RESP EVEN AND UNLABORED. PT ON MONITOR.
--- NOTE | 2021-02-19 05:00 | NUR ---
PT IN STRECHER ON MONITOR. RESP EVEN AND UNLABORED. CALL LIGHT AT BEDSIDE.
--- NOTE | 2021-02-19 06:00 | NUR ---
PT ON MONITOR PT RESP EVEN UNLABORED.
--- NOTE | 2021-02-19 13:43 | NUR ---
POC GLUCOSE 101
[2021-02-19] MEDS ORDERED: OMEPRAZOLE20 M1 PO (18:39)
--- NOTE | 2021-02-19 20:56 | NUR ---
PT DC TO HOME. HOMECARE AND FOLLOW UP INFORMATION PROVIDED, PT ACKNOWLEDGED, PT STABLE AT DC.
--- NOTE | 2021-02-19 20:57 | NUR ---
VITALS AT DC BP:140/58 HEART RATE: 67 O2: 97 RESPIRATORY RATE 12
== END 2021-02-19 20:57 | disposition home or self-care (01) | DRG 303 ==
LOC: D.ER 18:59 → D.EDHOLD 21:51 → OBSVTIME 21:52 → D.EDHOLD 02-19 17:15
PROVIDERS: Family Medicine; ADMIT Legal Medicine; ATTEND Legal Medicine
DX: I25.10 Atherosclerotic heart disease of native coronary artery without angina pectoris (principal); R07.9 Chest pain, unspecified; E83.42 Hypomagnesemia; R53.83 Other fatigue; I10 Essential (primary) hypertension; R06.00 Dyspnea, unspecified; E78.5 Hyperlipidemia, unspecified; E11.9 Type 2 diabetes mellitus without complications; N28.9 Disorder of kidney and ureter, unspecified